=== PATIENT | male | born 1965 | race Caucasian/White ===

== ENCOUNTER 2021-04-12 06:06 | Day surgery (SDC) | payer BC ==
[~2021-04-12] VITALS: Ht 188 cm; Wt 118.8 kg
[~2021-04-12 06:06] MED LIST: LEVO75CA5 PO
[2021-04-12] MEDS ORDERED: 0.9%NACL 1000ML 1,000 ML IV ONE (06:32)
[2021-04-12 07:13] VITALS: BP 116/78
[2021-04-12] MEDS ORDERED: PROPOFOL 10 MG/ML 20ML VIAL IV ONE (08:07)
[2021-04-12 08:30] VITALS: BP 113/69
[2021-04-12 08:35] VITALS: BP 116/63
[2021-04-12 08:45] VITALS: BP 114/73
[2021-04-12 09:00] VITALS: BP 114/60
== END 2021-04-12 09:08 | disposition home or self-care (01) ==
LOC: DAH 06:06 → ENDO 06:06
PROVIDERS: ATTEND Internal Medicine Gastroenterology
DX: Z12.11 Encounter for screening for malignant neoplasm of colon (principal); K57.30 Diverticulosis of large intestine without perforation or abscess without bleeding; Z80.0 Family history of malignant neoplasm of digestive organs; E03.9 Hypothyroidism, unspecified; Z79.899 Other long term (current) drug therapy; Z20.822 Contact with and (suspected) exposure to COVID-19
CPT/HCPCS: 45378; 87635; A4215 ×2; A4221; A4222; A4223; A4606; A4620; A4657; A4663; C9803; J2704; J7030; G0105